=== PATIENT | female | born 1945 | race Caucasian/White ===

== ENCOUNTER → 2023-10-26 13:02 | Outpatient (REF) | payer OTHER, SELFPAY | LOC: WDC 13:02 | PROVIDERS: ATTENDING PHYSICIAN Obstetrics & Gynecology Gynecology; FAMILY PHYSICIAN Internal Medicine | DX: Z12.31 Encounter for screening mammogram for malignant neoplasm of breast (principal) | CPT/HCPCS: 77063; 77067 ==

== ENCOUNTER → 2024-05-11 12:46 | Outpatient (REF) | payer OTHER, SELFPAY | LOC: WDC 12:46 | PROVIDERS: ATTENDING PHYSICIAN Obstetrics & Gynecology Gynecology; FAMILY PHYSICIAN Internal Medicine | DX: R92.2 Inconclusive mammogram (principal); Z85.3 Personal history of malignant neoplasm of breast | CPT/HCPCS: 76641 ==

== ENCOUNTER 2024-05-11 14:09 | Outpatient (RCR) | payer OTHER, SELFPAY ==
[2024-05-11 14:30] VITALS: BP 168/68
[2024-05-11] MEDS: RECLAST 100 IV (14:45)
[2024-05-11 15:20] VITALS: BP 179/75
== END 2024-05-12 11:05 | disposition home or self-care (01) ==
LOC: OID 14:09
PROVIDERS: ATTENDING PHYSICIAN Internal Medicine Endocrinology, Diabetes & Metabolism; FAMILY PHYSICIAN Internal Medicine
DX: M81.0 Age-related osteoporosis without current pathological fracture (principal)
CPT/HCPCS: 96365; J3489

== ENCOUNTER → 2024-10-27 13:48 | Outpatient (REF) | payer OTHER, SELFPAY | LOC: WDC 13:48 | PROVIDERS: ATTENDING PHYSICIAN Obstetrics & Gynecology Gynecology; FAMILY PHYSICIAN Internal Medicine | DX: Z12.31 Encounter for screening mammogram for malignant neoplasm of breast (principal) | CPT/HCPCS: 77063; 77067 ==

== ENCOUNTER → 2025-02-22 14:44 | Outpatient (REF) | payer OTHER, SELFPAY | LOC: RAD 14:44 | PROVIDERS: ATTENDING PHYSICIAN Internal Medicine Endocrinology, Diabetes & Metabolism; FAMILY PHYSICIAN Internal Medicine | DX: M81.0 Age-related osteoporosis without current pathological fracture (principal) | CPT/HCPCS: 77080 ==

== ENCOUNTER → 2025-03-14 12:25 | Outpatient (REF) | payer OTHER, SELFPAY | LOC: RAD 12:25 | PROVIDERS: ATTENDING PHYSICIAN Urology; FAMILY PHYSICIAN Internal Medicine | DX: R31.0 Gross hematuria (principal); N30.10 Interstitial cystitis (chronic) without hematuria; R39.9 Unspecified symptoms and signs involving the genitourinary system; N39.42 Incontinence without sensory awareness; R15.9 Full incontinence of feces | CPT/HCPCS: 74178; Q9967 ==

== ENCOUNTER → 2025-03-27 14:30 | Outpatient (REF) | payer OTHER, SELFPAY | LOC: RAD 14:30 | PROVIDERS: ATTENDING PHYSICIAN Internal Medicine | DX: M79.672 Pain in left foot (principal) | CPT/HCPCS: 73630 ==

== ENCOUNTER → 2025-05-10 10:39 | Outpatient (REF) | payer OTHER, SELFPAY | LOC: WDC 10:39 | PROVIDERS: ATTENDING PHYSICIAN Obstetrics & Gynecology Gynecology; FAMILY PHYSICIAN Internal Medicine | DX: R92.2 Inconclusive mammogram (principal); Z85.3 Personal history of malignant neoplasm of breast | CPT/HCPCS: 76641 ==

== ENCOUNTER 2025-05-14 14:16 | Outpatient (RCR) | payer OTHER, SELFPAY ==
[2025-05-14 14:33] VITALS: BP 148/69
[2025-05-14] MEDS: EVENITY 105 MG SC ×2 (15:08→15:09)
== END 2025-05-15 09:31 | disposition home or self-care (01) ==
LOC: OID 14:16
PROVIDERS: ATTENDING PHYSICIAN Internal Medicine Endocrinology, Diabetes & Metabolism; FAMILY PHYSICIAN Internal Medicine
DX: M81.0 Age-related osteoporosis without current pathological fracture (principal); N87.1 Moderate cervical dysplasia
CPT/HCPCS: 96372; J3111

== ENCOUNTER 2025-06-15 23:51 | Emergency (ER) | payer OTHER, SELFPAY ==
[2025-06-16 00:01] VITALS: BP 186/82
[2025-06-16 02:11] VITALS: BMI 21.8
--- NOTE | 2025-06-16 02:15 | ED.GENMED ---
History of Present Illness
General
Chief Complaint: Eye Problems
Source: patient
Time Seen by Provider: 06/16/25 01:46
History of Present Illness
History of Present Illness:
This patient is an 79-year-old female who presents to the emergency department with a history of blepharitis, stye, and then diagnosis of bilateral herpetic eye infection. She has been having these eye symptoms since late March Garbe is quite
painful although getting better. As a result of her eye complaints she states that she feels like she cannot eat, has intermittent nausea, weight loss, and feels generally weak. Patient does have a history of 'spastic colon', and states that she
does typically have intermittent nausea with this however she is worried that she may not be eating enough. She got particularly concerned tonight because when she checked her blood pressure at home it was elevated which prompted her visit here.
She denies chest pain, shortness of breath, fever, chills, double vision, abdominal pain, vomiting, black or bloody stools, urinary symptoms, or other complaints.
Past History
Past History
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
ED Past Surgical History: Gynecological and Orthopedic
Social History
Tobacco: Non-smoker
Alcohol: None
Drug: None
Personal: Single
Living: alone
Employment: Retired
Family History
Family History: Other (Noncontributory)
Phy Exam
Physical Exam
Physical Exam:
GENERAL: Alert , in no apparent distress
EYE: pupils equal and reactive, no photophobia, EOMI
NECK: Supple, no significant adenopathy.
ENT: o/p clr, mmm.
CARDIAC: Regular rate and rhythm .
LUNGS: Clear breath sounds bilaterally, no acute respiratory distress, no wheezes/rales/rhonchi
ABDOMEN: Soft, without focal tenderness, no r/g, no cvat
NEUROLOGICAL: Alert and oriented, no focal neuro deficits
SKIN: Warm and dry, skin intact.
MUSCULOSKELETAL: No edema, well perfused.
PSYCH: Appears anxious but is very cooperative
Course
Orders/Labs/Results
Orders:
Orders
06/16/25 02:08
Electrocardiogram (*1) Stat
Reason for Study: Abdominal Pain
Cardiac Monitoring- Treatment ONCE
EKG- Treatment ONCE
Urinalysis Reflex To Culture Urgent
Date Specimen was Collected: 06/16/25
Time Specimen was Collected: 02:39
06/16/25 02:25
Complete Blood Count/No Diff Urgent
Comprehensive Metabolic Panel Urgent
Abnormal Lab Results
06/16/25
02:25
Glucose 113 H mg/dl
(70-99)
Calcium 10.5 H mg/dl
(8.4-10.2)
Alkaline Phosphatase 132 H U/L
(38-126)
06/16/25 02:25
06/16/25 02:25
Vital Signs
Initial and Last Documented VS:
Initial Vital Signs
Temp Pulse Resp BP Pulse Ox
98.0 F 63 20 186/82 98
06/16/25 00:01 06/16/25 00:01 06/16/25 00:01 06/16/25 00:01 06/16/25 00:01
Last Documented Vital Signs
Temp Pulse Resp BP Pulse Ox
98.0 F 61 12 163/67 98
06/16/25 00:01 06/16/25 02:19 06/16/25 02:19 06/16/25 02:18 06/16/25 02:18
*Pulse Oximetry
SaO2: 98
Oxygen Mode of Delivery: Room air
Patient hypoxic: no
*Critical Care Note
Total Time (30-74mins, 75-104mins- exclusive of procedures): Not Applicable
Update Note
Update Note:
Patient presents to the Emergency Department with ___intermittent nausea, weight loss, anorexia
Number and Complexity of Problems Addressed at the Encounter
� Chronic conditions affecting care:
� Acute Exacerbation and/or Progression of Chronic Illness:
� Differential Diagnosis includes: But not limited to anxiety, medication effect, electrolyte disorder, etc. etc.
Amount and/or Complexity of Data to be Reviewed and Analyzed
� I performed an independent evaluation of and my interpretation is:
EKG: Read by me, sinus bradycardia, no acute ischemia, normal axis
CT:
Xrays:
Laboratory Studies: Mild hyperglycemia, very mild hypercalcemia, otherwise generally unremarkable
Other:
� Review of other/old records reveals:
� Clinical information was obtained by an independent historian:
� Prescriptions/Medications Considered but not given:
� Further testing considered but not performed:
Risk of Complications and/or Morbidity or Mortality of Patient Management
� Social determinants of health affecting care:
� Discussion with other providers (PCP, Hospitalists, Consultants, etc):
� Escalation of care including admission/observation vs risk of discharge considered: Vital signs unremarkable, labs and ECG generally unremarkable, abdomen soft and nontender, exam nontoxic. Patient does have a history of
chronic nausea. I do suspect a component of anxiety related to her symptoms and strongly recommend that she see her PCP this week for further evaluation and follow-up.
ED Attending Note
-
Portions of this chart may have been created with voice recognition software.� Occasional wrong word or��sound alike� substitutions may have occurred due to the inherent limitations of voice recognition software.
Discharge Plan
Departure
Patient Disposition: Home (Routine Discharge)
Date of Disposition: 06/16/25
Time of Disposition: 03:28
Patient with high blood pressure during this ER visit?: Yes
Condition: Good
Discharge Problem:
Nausea
Instructions: Nausea and vomiting in adults, BLOOD PRESSURE
Prescriptions:
No Action
gabapentin [Neurontin] 600 MG tablet
100 mg PO QPM
cholecalciferol (vitamin D3) [Vitamin D3] 2,000 UNIT capsule
1,000 unit PO BID
L.acidoph,paracasei,B.animalis 1 EACH capsule
1 ea PO BID
ondansetron [Zofran ODT] 8 MG tablet,disintegrating
8 mg PO TID PRN (Reason: nausea/vomiting) Qty: 20 0RF
atorvastatin 20 mg Tablet
20 mg PO QPM
clindamycin phosphate 1 % Gel
1 applic TOPICAL DAILY
benzonatate [Tessalon Perles] 100 mg Capsule
200 mg PO BID PRN (Reason: cough)
metronidazole 0.75 % Cream
1 applic TOPICAL DAILY
methimazole [Tapazole] 5 mg Tablet
2.5 mg PO .QOD
betamethasone dipropionate 0.05 % Cream
1 applic TOPICAL DAILY PRN (Reason: SCHAMBERGERS)
metoprolol succinate 25 mg Capsule,Sprinkle,Er 24hr
25 mg PO .QPM
ipratropium bromide 21 mcg (0.03 %) Vanduser,Non-Aerosol
2 spray INTRANASAL BID
Referrals:
Geovanna Myrick MD [Family Provider, Internal Medicine] - Follow up in 2-3 days
Activity Restrictions/Additional Instructions:
IF YOU DEVELOP CHEST PAIN, ABDOMINAL PAIN, REPEATED VOMITING, FEVER, OR OTHER WORRISOME SIGNS, PLEASE RETURN TO THE ER IMMEDIATELY!
Interventions
Interventions:
*Risk Screen - Suicide Last Done: 06/16/25 00:01
*General Assessment Last Done: 06/16/25 02:12
*Neglect/Abuse Screening Last Done: 06/16/25 02:12
*ED- Fall Risk Assessment Last Done: 06/16/25 02:12
*ED COVID-19 Vaccine History Last Done: 06/16/25 02:12
Discharge Date and Time
Print Language: ITALIAN
[2025-06-16 02:18] VITALS: BP 163/67
[2025-06-16 02:37] LABS: Hematocrit 41.4 % (37.0-47.0); Hemoglobin 14.0 g/dL (12.0-16.0); Mean Corp Hgb Conc. 33.8 g/dL (33.0-37.0); Mean Corpuscular Volume 88.7 fL (81.0-99.0); Platelet Count 226 10^3/uL (130-400); Red Cell Dist. Width 12.3 % (11.5-14.5)
[2025-06-16 02:59] LABS: ALT (SGPT) 20 U/L (0-35); AST (SGOT) 31 U/L (14-36); Albumin 4.6 g/dl (3.5-5.0); Alkaline Phosphatase 132 U/L (38-126); Blood Urea Nitrogen 15 mg/dl (7-17); Calcium 10.5 mg/dl (8.4-10.2); Carbon Dioxide 27 mmol/L (22-30); Chloride 102 mmol/L (98-107); Estimated Creatinine Clearance 48 ml/min; Glucose 113 mg/dl (70-99); Potassium 4.4 mmol/L (3.5-5.1); Sodium 137 mmol/L (135-145); Total Protein 8.1 g/dl (6.3-8.2); eGFR > 60.00
[2025-06-16 03:00] VITALS: BP 137/68
== END 2025-06-16 04:06 | disposition home or self-care (01) ==
LOC: EMR 23:51
PROVIDERS: EMERGENCY PHYSICIAN Emergency Medicine; FAMILY PHYSICIAN Internal Medicine
DX: R11.0 Nausea (principal); H57.9 Unspecified disorder of eye and adnexa; K58.9 Irritable bowel syndrome, unspecified; M79.7 Fibromyalgia; K21.9 Gastro-esophageal reflux disease without esophagitis; R53.83 Other fatigue
CPT/HCPCS: 99283; 80053; 85027; 93005

== ENCOUNTER 2025-06-18 13:59 | Outpatient (RCR) | payer OTHER, SELFPAY ==
[2025-06-18 14:00] VITALS: BP 151/59
[2025-06-18] MEDS: EVENITY 105 MG SC ×2 (15:00)
== END 2025-06-19 23:59 | disposition home or self-care (01) ==
LOC: OID 13:59
PROVIDERS: ATTENDING PHYSICIAN Internal Medicine Endocrinology, Diabetes & Metabolism; FAMILY PHYSICIAN Internal Medicine
DX: M81.0 Age-related osteoporosis without current pathological fracture (principal)
CPT/HCPCS: 96372; J3111

== ENCOUNTER 2025-07-16 13:28 | Outpatient (RCR) | payer OTHER, SELFPAY ==
[2025-07-16 13:45] VITALS: BP 144/66
[2025-07-16] MEDS: EVENITY 105 MG SC ×2 (14:02→14:03)
== END 2025-07-20 23:59 | disposition home or self-care (01) ==
LOC: OID 13:28
PROVIDERS: ATTENDING PHYSICIAN Internal Medicine Endocrinology, Diabetes & Metabolism; FAMILY PHYSICIAN Internal Medicine
DX: M81.0 Age-related osteoporosis without current pathological fracture (principal)
CPT/HCPCS: 96372; J3111

== ENCOUNTER 2025-08-13 13:32 | Outpatient (RCR) | payer OTHER, SELFPAY ==
[2025-08-13 14:03] VITALS: BP 154/70
[2025-08-13] MEDS: EVENITY 105 MG SC ×2 (14:12)
== END 2025-08-14 10:02 | disposition home or self-care (01) ==
LOC: OID 13:32
PROVIDERS: ATTENDING PHYSICIAN Internal Medicine Endocrinology, Diabetes & Metabolism; FAMILY PHYSICIAN Internal Medicine
DX: M81.0 Age-related osteoporosis without current pathological fracture (principal)
CPT/HCPCS: 96372; J3111

== ENCOUNTER 2025-09-10 13:26 | Outpatient (RCR) | payer OTHER, SELFPAY ==
[2025-09-10 13:55] VITALS: BP 148/65
[2025-09-10] MEDS: EVENITY 105 MG SC ×2 (14:19)
== END 2025-09-11 09:26 | disposition home or self-care (01) ==
LOC: OID 13:26
PROVIDERS: ATTENDING PHYSICIAN Internal Medicine Endocrinology, Diabetes & Metabolism; FAMILY PHYSICIAN Internal Medicine
DX: M81.0 Age-related osteoporosis without current pathological fracture (principal)
CPT/HCPCS: 96372; J3111